=== PATIENT | female | born 1980 | race Caucasian/White ===

== ENCOUNTER 2016-12-18 18:20 | Emergency (ER) | payer OTHER ==
--- NOTE | 2016-12-18 18:26 | EDPHY ---
H & P Time Seen by Provider: 12/18/16 18:25 Constitutional: Initial Vital Signs Temperature (C) 36.9 C 12/18/16 18:31 Heart Rate 89 12/18/16 18:31 Respiratory Rate 14 12/18/16 18:31 Blood Pressure 139/97 H 12/18/16 18:31 O2 Sat (%) 99 12/18/16 18:31 O2 Delivery Mode Room Air Allergies/Adverse Reactions: No Known Allergies Allergy (Unverified 12/18/16 18:31) Home Medications: Medication Instructions Recorded Amoxicillin 500mg cap 05/13/10 Bcp, Stopped Yesterday 05/13/10 CLARITHROMYCIN 05/13/10 Protonix 05/13/10 oxyCODONE/APAP 5/325 [Percocet 1 tab PO Q6 #15 tab 05/13/10 5/325] Famotidine [Pepcid 20 MG (OTC)] 20 mg PO DAILY #10 tab 12/18/16 HYDROcodone/APAP 10/325 [[place] 1 - 2 each PO Q4-6PRN PRN #20 tab 12/18/16 10/325] Pantoprazole Sodium [Protonix] 20 mg PO DAILY #30 tablet. 12/18/16 Medical Decision Making - Diagnostics Imaging Results: Imaging Impressions Abdomen Ultrasound 12/18/16 18:34 Impression: No cholelithiasis or biliary ductal dilation. Findings and recommendations discussed with Emergency Department physician, Lakeisha Messina PA-C at 19:13 hour, 12/18/2016. Final report concurs with initial preliminary interpretation. Abdomen CT 12/18/16 19:23 Impression: 1. Mild constipation. 2. No CT evidence of appendicitis, abscess or bowel obstruction. Findings and recommendations discussed with Emergency Department physician, Rasta Sosa MD at 20:18 hour, 12/18/2016. Final report concurs with initial preliminary interpretation. ED Course/Re-evaluation: CHIEF COMPLAINT: Abdominal pain, nausea. HISTORY OF PRESENT ILLNESS: The patient is a 36-year-old female who presents with nausea and RLQ pain radiating to her back. She has had the nausea and generalized abdominal pain for the past month but today they worsened and the pain localized to the RLQ. The pain is worsened with eating. She denies fever, diarrhea, shortness of breath, or other complaints. She has no history of prior abdominal surgeries. REVIEW OF SYSTEMS: A 10 point review of systems was performed and is negative with the exception of the elements mentioned in the history of present illness. PHYSICAL EXAM: HR, BP, O2 Sat, RR. Temp noted General Appearance: Alert, well hydrated, appropriate, and non-toxic appearing. Head: Atraumatic without scalp tenderness or obvious injury Eyes: Pupils equal, round, reactive to light and accommodation, EOMI, no trauma , no injection. Ears: Clear bilaterally, no perforation, normal landmarks Nose: Atraumatic, no rhinorrhea, clear. Throat: There is no erythema or exudates, no lesions, normal tonsils, mucus membranes moist. Neck: Supple, 2+ carotid upstroke, nontender, no lymphadenopathy. Respiratory: No retractions, no distress, no wheezes, and no accessory muscle use. Lungs are clear to auscultation bilaterally. Cardiovascular: Regular rate and rhythm, no murmurs, rubs, or gallops. Bilateral carotid, radial, dorsalis pedis, and posterior tibial pulses intact. Good capillary refill all extremities. Gastrointestinal: Abdomen is soft, non-distended, no masses, no rebound, no guarding, no peritoneal signs. RUQ tenderness. Positive Beck's sign. Musculoskeletal: Normal active ROM of all extremities, atraumatic. Neurological: Alert, appropriate, and interactive. The patient has normal DTRs and non-focal cranial nerves, motor, sensory, and cerebellar exam. Skin: No rashes, good turgor, no nodules on palpation. Past medical history: Retrocecal appendix. Past surgical history: Denies. Family history: Possible gallbladder history. Social history: Here alone. DIAGNOSTICS/PROCEDURES/CRITICAL CARE TIME: Study: Ultrasound of the: RUQ. Results: See Imaging Results section. The study was read by the radiologist. I viewed the images myself on the PACS system. Study: CT of the: RUQ. Results: See Imaging Results section. The study was read by the radiologist. I viewed the images myself on the PACS system. DIFFERENTIAL DIAGNOSIS: The differential diagnosis for the patient's abdominal pain included but was not limited to ovarian cyst, pelvic inflammatory disease, ovarian torsion, urinary tract infection, ectopic , cholecystitis, and appendicitis. MEDICAL DECISION MAKIN-year-old female with no prior abdominal history presents with one month of abdominal pain and nausea that worsened today. On exam she is tender in the RUQ and has Positive Beck's sign. I think an acute gallbladder pathology is likely in this patient. An IV was established. We will check lab work. I have ordered a RUQ ultrasound. 1L IV saline, 4mg IV Dilaudid, 30mg IV Toradol, and 4mg IV Zofran administered. 1912: Ultrasound results conveyed to me negative. See Imaging Results section for official report. I have ordered an abdominal CT. 2015: CT results conveyed to me by Dr. Foley, radiology. He reports no acute processes. I think this is likely a gastritis. I will send her home with prescriptions for Pepcid and Protonix. I discussed these results with her and answered her questions. She is comfortable with this plan. - Data Points Laboratory Results: Laboratory Results 12/18/16 18:33 12/18/16 18:33 12/18/16 12/18/16 12/18/16 18:33 18:33 18:33 WBC 6.71 10^3/uL 10^3/uL (3.80-9.50) RBC 4.46 10^6/uL 10^6/uL (4.18-5.33) Hgb 12.4 g/dL L g/dL (12.6-16.3) Hct 37.0 % L % (38.0-47.0) MCV 83.0 fL fL (81.5-99.8) MCH 27.8 pg L pg (27.9-34.1) MCHC 33.5 g/dL g/dL (32.4-36.7) RDW 12.3 % % (11.5-15.2) Plt Count 238 10^3/uL 10^3/uL (150-400) MPV 9.7 fL fL (8.7-11.7) Neut % (Auto) 58.7 % % (39.3-74.2) Lymph % (Auto) 35.3 % % (15.0-45.0) [place] % (Auto) 4.9 % % (4.5-13.0) Eos % (Auto) 0.6 % % (0.6-7.6) Baso % (Auto) 0.4 % % (0.3-1.7) Nucleat RBC Rel Count 0.0 % % (0.0-0.2) Absolute Neuts (auto) 3.93 10^3/uL 10^3/uL (1.70-6.50) Absolute Lymphs (auto) 2.37 10^3/uL 10^3/uL (1.00-3.00) Absolute Monos (auto) 0.33 10^3/uL 10^3/uL (0.30-0.80) Absolute Eos (auto) 0.04 10^3/uL 10^3/uL (0.03-0.40) Absolute Basos (auto) 0.03 10^3/uL 10^3/uL (0.02-0.10) Absolute Nucleated RBC 0.00 10^3/uL 10^3/uL (0-0.01) Immature Gran % 0.1 % % (0.0-1.1) Immature Gran # 0.01 10^3/uL 10^3/uL (0.00-0.10) Sodium 138 mEq/L mEq/L (134-144) Potassium 3.7 mEq/L mEq/L (3.5-5.2) Chloride 107 mEq/L mEq/L (97-110) Carbon Dioxide 21 mEq/l L mEq/l (22-31) Anion Gap 10 mEq/L mEq/L (8-16) BUN 9 mg/dL mg/dL (7-23) Creatinine 0.7 mg/dL mg/dL (0.6-1.0) Estimated GFR > 60 Glucose 83 mg/dL mg/dL (70-100) Calcium 9.1 mg/dL mg/dL (8.5-10.4) Total Bilirubin 0.7 mg/dL mg/dL (0.1-1.4) Conjugated Bilirubin 0.3 mg/dL mg/dL (0.0-0.5) Unconjugated Bilirubin 0.4 mg/dL mg/dL (0.0-1.1) AST 25 IU/L IU/L (14-46) ALT 35 IU/L IU/L (9-52) Alkaline Phosphatase 66 IU/L IU/L (38-126) Total Protein 7.9 g/dL g/dL (6.3-8.2) Albumin 4.3 g/dL g/dL (3.5-5.0) Lipase 59.0 IU/L IU/L (23-300) Beta HCG, Qual NEGATIVE Medications Given: Discontinued Medications Hydromorphone HCl (Dilaudid) 1 mg IVP EDNOW ONE Stop: 12/18/16 18:32 Last Admin: 12/18/16 18:40 Dose: 1 mg Sodium Chloride (Ns) 1,000 mls @ 0 mls/hr IV ONCE ONE PRN Reason: Wide Open Stop: 12/18/16 18:32 Last Admin: 12/18/16 18:40 Dose: 1,000 mls Ketorolac Tromethamine (Toradol) 30 mg IVP EDNOW ONE Stop: 12/18/16 18:32 Last Admin: 12/18/16 19:10 Dose: 30 mg Ondansetron HCl (Zofran) 4 mg IVP EDNOW ONE Stop: 12/18/16 18:32 Last Admin: 12/18/16 18:40 Dose: 4 mg Departure - Departure Disposition: Home, Routine, Self-Care Clinical Impression: Gastritis Qualifiers: Gastritis type: unspecified gastritis Chronicity: acute Gastritis bleeding: without bleeding Qualified Code(s): K29.00 - Acute gastritis without bleeding Condition: Good Instructions: Hydrocodone/Acetaminophen (By mouth), Gastritis (ED) Additional Instructions: Follow up with Dr. Ta, gastroenterology for reevaluation. Take Pepcid and Protonix as prescribed. Return for any serious worsening of condition. Referrals: [facility] [Other] - As per Instructions Garfield Ta MD [[facility] [place] Primary Care Provider] - As per Instructions Prescriptions: Famotidine [Pepcid 20 MG (OTC)] 20 mg PO DAILY #10 tab HYDROcodone/APAP 10/325 [[place] 10/325] 1 - 2 each PO Q4-6PRN PRN #20 tab PRN Reason: Pain, Moderate Pantoprazole Sodium [Protonix] 20 mg PO DAILY #30 tablet. Report Scribed for: Rasta Sosa Report Scribed by: Odin Butts Date of Report: 12/18/16 Time of Report: 20:16
[2016-12-18] MEDS ORDERED: KETOROLAC 30 MG/1 ML SDV IVP ONE (18:31)
[2016-12-18] MEDS ORDERED: ONDANSETRON 4 MG/2 ML VIAL IVP ONE (18:31)
[2016-12-18] MEDS ORDERED: NS 1,000 ML IV ONE (18:31)
[2016-12-18] MEDS ORDERED: HYDROmorphONE/DILAUDID 1 MG/ML SYR IVP ONE (18:31)
[2016-12-18 18:45] LABS: % IMMATURE GRANULYOCYTES 0.1 % (0.0-1.1); ABSOLUTE IMMATURE GRANULOCYTES 0.01 10^3/uL (0.00-0.10); ADD DIFF? NO; ADD MORPH? NO; ADD SCAN? NO; ATYPICAL LYMPHOCYTE FLAG 10 (0-99); FRAGMENT RBC FLAG 0 (0-99); HEMOGLOBIN 12.4 g/dL (12.6-16.3); LEFT SHIFT FLG 0 (0-99); LIPEMIA HEMOLYSIS FLAG 80 (0-99); MEAN CELL HEMOGLOBIN 27.8 pg (27.9-34.1); MEAN CELL HEMOGLOBIN CONCENTR. 33.5 g/dL (32.4-36.7); MEAN PLATELET VOLUME 9.7 fL (8.7-11.7); PLATELET CLUMPS FLAG 10 (0-99); PLATELET COUNT 238 10^3/uL (150-400); RED BLOOD CELL COUNT 4.46 10^6/uL (4.18-5.33); RED CELL DISTRIBUTION WIDTH 12.3 % (11.5-15.2)
[2016-12-18 19:01] LABS: ALANINE AMINOTRANSFERASE 35 IU/L (9-52); ALBUMIN 4.3 g/dL (3.5-5.0); ALKALINE PHOSPHATASE 66 IU/L (38-126); ANION GAP 10 mEq/L (8-16); ASPARTATE AMINOTRANSFERASE 25 IU/L (14-46); BILIRUBIN,TOTAL 0.7 mg/dL (0.1-1.4); BILIRUBIN-CONJUGATED 0.3 mg/dL (0.0-0.5); BILIRUBIN-UNCONJUGATED 0.4 mg/dL (0.0-1.1); CALCIUM 9.1 mg/dL (8.5-10.4); CARBON DIOXIDE 21 mEq/l (22-31); CHLORIDE 107 mEq/L (97-110); CREATININE 0.7 mg/dL (0.6-1.0); GLOMERULAR FILTRATION RATE > 60; GLUCOSE 83 mg/dL (70-100); POTASSIUM 3.7 mEq/L (3.5-5.2); SODIUM 138 mEq/L (134-144); TOTAL PROTEIN 7.9 g/dL (6.3-8.2)
[2016-12-18 19:18] VITALS: TEMP 98.1
[2016-12-18] MEDS ORDERED: IOPAMIDOL (ISOVUE-300) 100 ML BTL IV ONE (19:30)
[2016-12-18] MEDS ORDERED: FAMOTIDINE 20 MG TAB ONE (20:19)
[2016-12-18] MEDS ORDERED: HYDROCOD/APAP 5/325 PREPACK#6 BTL TAKEHOME ONE ×2 (20:22→20:23)
[2016-12-18] MEDS ORDERED: HYDROCODONE/APAP 5/325 TAB ONE (20:22)
[2016-12-18] MEDS ORDERED: FAMOTIDINE 20 MG TAB PO ONE (20:24)
[2016-12-18 20:33] VITALS: BP 112/76; PULSE 80; RESP 16; O2SAT 97
== END 2016-12-18 20:32 | disposition home or self-care (01) ==
DX: K29.00 Acute gastritis without bleeding (principal)
CPT/HCPCS: 96374; J1170; J1885; J2405; Q9967

== ENCOUNTER 2018-09-24 20:32 | Emergency (ER) | payer OTHER ==
[2018-09-24] MEDS ORDERED: NS 1,000 ML IV ONE (21:05)
--- NOTE | 2018-09-24 21:08 | EDPHY ---
H & P Stated Complaint: RLQ and right flank pain for one week - Personal History LMP (Females 10-55): 22-28 Days Ago Current Tetanus/Diphtheria Vaccine: No Current Tetanus Diphtheria and Acellular Pertussis (TDAP): No - Medical/Surgical History Hx Asthma: No Hx Chronic Respiratory Disease: No Hx Diabetes: No Hx Cardiac Disease: No Hx Renal Disease: No Hx Cirrhosis: No Hx Alcoholism: No Hx HIV/AIDS: No Hx Splenectomy or Spleen Trauma: No Other PMH: denies - Social History Smoking Status: Never smoked Time Seen by Provider: 09/24/18 20:50 HPI/ROS: CHIEF COMPLAINT: Right lower quadrant abdominal pain x1 week HISTORY OF PRESENT ILLNESS: 37-year-old female complaining of 1 week of progressive right lower quadrant abdominal pain. No radiation pain. No nausea or vomiting. No abnormal bowel movement. No melena or hematochezia. No diarrhea. No urinary abnormality. No vaginal bleeding or discharge. No dyspareunia. No fever or chills. No flu-like symptoms Last oral intake at 7:00 p.m. Consisting of 2 tacos which she tolerated well REVIEW OF SYSTEMS: 10 systems reviewed and negative with the exception of the elements mentioned in the history of present illness PAST MEDICAL & SURGICAL HISTORY: No pertinent medical or surgical history SOCIAL HISTORY:Nonsmoker PHYSICAL EXAM (Prior to examination, patient consented to physical exam, hands were washed and my usual and customary physical exam procedures followed) 1) GENERAL: Well-developed, well-nourished, alert and oriented. Appears to be in no acute distress. 2) HEAD: Normocephalic, atraumatic 3) HEENT: Pupils equal, round, reactive to light bilaterally. Sclera anicteric. Nasopharynx, oropharynx, clear, no lesions. MoistDry mucous membranes. Ears bilaterally with normal tympanic membranes. 4) NECK: Full range of motion, no meningeal signs. 5) LUNGS: Clear auscultation bilaterally, no wheezes, no rhonchi, no retractions. 6) HEART: Regular rate and rhythm, no murmur, no heave, no gallop. 7) ABDOMEN: guarding abdomen, tender to palpation right lower quadrant, negative Beck's, negative Rovsing's, negative peritoneal sign, 8) MUSCULOSKELETAL: Moving all extremities, no focal areas of tenderness, no obvious trauma. No peripheral edema or discoloration. 9) BACK: No CVA tenderness, no midline vertebral tenderness, no fluctuance, no step-off, no obvious trauma, no visual or palpable abnormality. 10) SKIN: No rash, no petechiae. 11) Psychiatric: Patient is oriented X 3, there is no agitation. DIFFERENTIAL DIAGNOSIS: My differential diagnosis includes, but is not limited to, acute appendicitis, acute cholecystitis, bowel obstruction, acute pancreatitis, ovarian torsion, ectopic , gastritis and urinary tract infection. The patient understands that this diagnosis is provisional and can never be 100% accurate. This is a partial list of diagnoses considered. These considerations are based on history, physical exam, past history and reassessment. (Joseph Louis) Constitutional: Initial Vital Signs Temperature (C) 36.8 C 09/24/18 20:46 Heart Rate 93 09/24/18 20:46 Respiratory Rate 16 09/24/18 20:46 Blood Pressure 96/67 L 09/24/18 20:46 O2 Sat (%) 97 09/24/18 20:46 O2 Delivery Mode Room Air Allergies/Adverse Reactions: amoxicillin Allergy (Verified 09/24/18 20:48) Home Medications: Medication Instructions Recorded NK [No Known Home Meds] 09/24/18 Medical Decision Making - Diagnostics Imaging Results: Images reviewed myself (Joseph Louis) ED Course/Re-evaluation: 9:08 p.m.: Will obtain diagnostic studies including pelvic and abdominal ultrasonography. Patient remains NPO since 7:00 p.m.tonight. 10:14 p.m.: Re-evaluation. Ultrasound is non diagnostic for appendicitis. She remains focally tender to palpation McBurney's point. Recommend CT imaging. Indications risks benefits discussed with patient she consents. 10:58 p.m.: Re-evaluation. Discussed with the patient her CT imaging showing a normal appearing appendix and her laboratory studies which are by and large within normal range. Normal LFTs, normal lipase. Negative test. Normal urinalysis. At this time she appears well, sitting upright, states that her symptoms have resolved without pharmacologic intervention from the emergency department. The specific etiology of her symptoms is incompletely clear at this time. Patient's laboratory studies, imaging studies, resolution of symptoms, are reassuring. Doubt acute appendicitis, doubt ectopic , doubt ovarian torsion, doubt acute cholecystitis. Plan will be discharge, close follow-up with primary care provider and also with Gastroenterology. Given usual and customary abdominal precautions instructions. Care of patient under supervision of secondary supervising physician Dr Aldridge with whom I discussed case. (Joseph Louis) This patient was evaluated and managed by the physician legal document assistant. I discussed the patient with the PA and agree with the plan of care. I am the secondary supervising physician. (Carlee Aldridge) - Data Points Laboratory Results: Laboratory Results 09/24/18 21:00 09/24/18 21:00 Medications Given: Discontinued Medications Sodium Chloride (Ns) 1,000 mls @ 0 mls/hr IV EDNOW ONE; Wide Open PRN Reason: Protocol Stop: 09/24/18 21:06 Last Admin: 09/24/18 21:06 Dose: 1,000 mls Departure - Departure Disposition: Home, Routine, Self-Care Clinical Impression: Abdominal pain Condition: Good Instructions: Acute Abdominal Pain (ED) Additional Instructions: Seek immediate medical attention if you develop new or worsening symptoms, if you develop fevers, chills, inability to tolerate oral intake or any other symptoms that concerns you. Referrals: Anil Post MD [Medical Doctor] - 5-7 days[facility],. [Clinic] - 1-2 days without fail
[2018-09-24 21:16] LABS: PLATELET COUNT 248 10^3/uL (150-400)
[2018-09-24] MEDS ORDERED: IOHEXOL 300 mgI/ML (OMNIPAQUE) 150 ML BTL IV ONE (22:14)
[2018-09-24 23:06] VITALS: BP 108/72
== END 2018-09-24 23:06 | disposition home or self-care (01) ==
DX: R10.31 Right lower quadrant pain (principal); E86.9 Volume depletion, unspecified
CPT/HCPCS: Q9967

== ENCOUNTER 2019-02-03 20:45 | Emergency (ER) | payer OTHER | END 2019-02-03 23:06 | disposition home or self-care (01) ==

== ENCOUNTER 2019-02-04 09:02 | Emergency (ER) | payer OTHER | END 2019-02-04 15:00 | disposition home or self-care (01) ==